=== PATIENT | male | born 1955 | race Caucasian/White ===

== ENCOUNTER 2018-04-10 05:46 | Day surgery (SDC) | payer BC ==
[2018-04-10] MEDS ORDERED: ONDANSETRON HCL IV 4 MG/2 ML VIAL IVP ONE (05:47)
[2018-04-10] MEDS ORDERED: LIDOCAINE 2% MDV (20MG/ML) 20ML VIAL IV ONE (05:47)
[2018-04-10] MEDS ORDERED: BUPIVACAINE LIPOSOME 266MG/20ML VIAL IV ONE (05:47)
[2018-04-10] MEDS ORDERED: BUPIVACAINE 0.25% W/EPI MPF 30ML VIAL IVP ONE (05:47)
[2018-04-10] MEDS ORDERED: TRANEXAMIC ACID 1,000 MG/10 ML ML IV ONE (05:47)
[2018-04-10] MEDS ORDERED: ROPIVACAINE HCL (NAROPIN) /PF 5MG/ML 20ML VIAL IV ONE (05:47)
[2018-04-10] MEDS ORDERED: MIDAZOLAM HCL 2MG/2ML VIAL IV ONE (05:47)
[2018-04-10] MEDS ORDERED: DEXAMETHASONE 4 MG/ML 1ML VIAL IVP ONE (05:47)
[2018-04-10] MEDS ORDERED: PROPOFOL 10 MG/ML VIAL IV ONE (05:47)
[2018-04-10] MEDS ORDERED: METOCLOPRAMIDE 10 MG TABLET PO ONE (06:00)
[2018-04-10] MEDS ORDERED: ACETAMINOPHEN 1,000 MG/100 ML BTL IV ONE (06:00)
[2018-04-10] MEDS ORDERED: CEFAZOLIN 2 Gram 2 GM/50 ML BAG IVPB ONE (06:00)
[2018-04-10] MEDS ORDERED: FAMOTIDINE 20MG TABLET PO ONE (06:00)
[2018-04-10] MEDS ORDERED: MECLIZINE 25 MG TABLET PO ONE (06:00)
[2018-04-10] MEDS ORDERED: ZOLPIDEM TARTRATE 5 MG TABLET PO PRN (09:45)
[2018-04-10] MEDS ORDERED: ONDANSETRON HCL IV 4 MG/2 ML VIAL IVP PRN (09:45)
[2018-04-10] MEDS ORDERED: DIPHENHYDRAMINE HCL 25 MG CAPSULE PO PRN (09:45)
[2018-04-10] MEDS ORDERED: AL HYDROX/MAG HYDROX 30ML UD PO PRN (09:45)
[2018-04-10] MEDS ORDERED: MAGNESIUM HYDROXIDE 30 ML UDC PO PRN (09:45)
[2018-04-10] MEDS ORDERED: TRAMADOL HCL 50 MG TABLET PO PRN ×2 (09:45)
[2018-04-10] MEDS ORDERED: METOCLOPRAMIDE HCL 10 MG/2 ML VIAL IVP PRN (09:45)
[2018-04-10] MEDS ORDERED: SENNOSIDES/DOCUSATE SODIUM UD CAPSULE PO PRN (09:45)
[2018-04-10] MEDS ORDERED: OXYCODONE HCL 5 MG TABLET PO PRN (09:48)
[2018-04-10] MEDS ORDERED: RINGERS SOLUTION,LACTATED 1,000 ML IV PRN (11:39)
[2018-04-10] MEDS: OXYCODONE HCL 5 MG TABLET PO PRN ×3 (11:46→22:00)
[2018-04-10] MEDS ORDERED: TRANEXAMIC ACID 1,000 MG in 0.9 % SODIUM CHLORIDE 100ML 100 ML IVPB ONE (13:00)
[2018-04-10] MEDS: HYDROMORPHONE HCL 2 MG/ML VIAL IV PRN ×2 (13:49→16:41)
[2018-04-10] MEDS: FERROUS SULFATE 325 MG TAB PO SCH (14:18)
[2018-04-10] MEDS: ACETAMINOPHEN 1,000 MG/100 ML BTL IV SCH ×3 (14:24→23:25)
[2018-04-10] MEDS: RINGERS SOLUTION,LACTATED 1,000 ML IV SCH (14:51)
[2018-04-10] MEDS: CEFAZOLIN 1 Gram 1 GM/50 ML BAG IVPB SCH ×3 (16:38→23:43)
--- NOTE | 2018-04-10 18:19 | Rehab Evaluation ---
Patient Information - Patient Information Diagnosis: OA L knee s/p L TKA Ordered Treatment: PT Evaluate and Treat Status: Initial Evaluation Surgery: Yes (L TKA) Date of Surgery: 04/10/18 History: Detail (Pt describes progressive degeneration of L knee over the past several years.) Past Medical/Surgical Hx: PAST MEDICAL/SURGICAL HISTORY Past Surgical History hernias gastric bypass anne marie left RTC PMH - Respiratory Hx Respiratory Disorders Yes Hx Sleep Apnea Yes Hx of CPAP No PMH - Cardiovascular Hx Cardiovascular Disorders No Exercise Tolerance Good PMH - Neuro Hx Neurological Disorders No PMH - GI Hx Gastrointestinal Disorders Yes Hx Gastroesophageal Reflux Yes: occassionally PMH - Hx Genitourinary Disorders No PMH - Endocrine Hx Endocrine Disorders No PMH - Musculoskeletal Hx Musculoskeletal Disorders Yes Hx Arthritis Yes: knees PMH - Psych Hx Psychiatric Problems No PMH - Hematology/Oncology Hx Hematology/Oncology Yes Disorders Hx Anemia Yes Premorbid Status: Detail (Pt was ambulating independently without assistive device prior to surgery. He was having difficulty with pain, stiffness, and weakness of the left knee.) Social History: Detail (Pt is retired from [employer]; he lives alone in a two story house with two steps to enter with no handrail. He will not need to use basement or upstairs immediately after surgery.) Precautions: [place], Fall - Time With Patient Total Time Spent With Patient (Min): 30 Treatment Procedures: Detail (PT Evaluation) Subjective Information - Subjective Information Per Patient (Pt sitting in bedside chair upon arrival; reports throbbing pain in L knee.) Objective Data - Pain Pain Present: Yes Pain Intensity: 7 (L knee) Pain Scale Used: Numeric (1 - 10) - Mental Status Patient Orientation: Oriented x3 - Visual Perception Appears within normal limits for therapeutic activities - ROM Not within normal limits (Within normal limits in R LE and L hip and ankle. Impaired in L knee due to bulky dressing and surgical procedure.) - Strength/Tone Not within normal limits (3-/5 L hip flexion, L knee flexion and extension; 4/5 L hip extension, abduction, adduction; 4+/5 L ankle dorsiflexion. All muscle groups of R LE are 4+/5.) - Coordination Appears within normal limits for therapeutic activities - Bed Mobility Needs Assist (Requires min assist for L LE into/out of bed.) - Transfers Independent (Independent sit/stand transfers w/front wheeled walker from bedside , from bedside chair.) - Balance Balance Sitting: Good Balance Standing: Good - Sensation Intact - Gait Detail (Ambulated from bedside chair to double doors past surgery and back to bedside chair, w/CGA and assist for IV pole, using front wheeled walker, WBAT L LE (about 188 feet total).) Therapy Assessment - Therapy Assessment Detail (Pt exhibits mild impairment of mobility consistent w/his post surgical condition. He is a good candidate for inpatient physical therapy.) Patient Education - Patient Education Teaching Topic: Disease Process, Equipment Use, Exercise/Activity Response: Return Demonstration, Reinforcement Needed, Verbalize Understanding Teaching Method: Discussion, Demonstration Teaching Recipient: Patient Barriers To Learning: None Problem List - Problem List Physical Therapy Problem List: Detail (1. Requires minimal assist w/bed mobility. 2. Impaired ROM of L knee. 3. Difficulty walking.) Goals - Goals Physical Therapy Goals: 1. Pt will be independent w/bed mobility. 2. Pt will safely and independently ascend/descend three steps with appropriate assistive device. 3. Pt will safely and independently ambulate over household distances/ surfaces with front-wheeled walker. 4. Pt will be independent in a basic home exercise program for range of motion and muscle activation. Prognosis - Prognosis Good Plan - Plan Physical Therapy Plan: Pt will be seen twice tomorrow to instruct in home exercise program, gait training on levels and stairs.
[2018-04-10] MEDS: ASPIRIN 325 MG TAB ENTERIC-COATED PO SCH (21:59)
[2018-04-11] MEDS: CEFAZOLIN 1 Gram 1 GM/50 ML BAG IVPB SCH ×3 (00:49→09:00)
[2018-04-11] MEDS: OXYCODONE HCL 5 MG TABLET PO PRN ×2 (02:50→07:21)
[2018-04-11 06:53] LABS: HEMATOCRIT 36.3 % (42.0-52.0); HEMOGLOBIN 11.5 gm/dl (14.0-18.0); MEAN CELL VOLUME 91.7 fl (81-97); MEAN CORPUSCULAR HGB CONC 31.7 g/dl (32-36); MEAN PLATELET VOLUME 10.6 fl (7.4-10.4); PLATELET COUNT 214 K/uL (130-400); RED BLOOD COUNT 3.96 M/uL (4.40-5.70); RED CELL DISTRIBUTION WIDTH 12.9 % (11.5-14.5); WHITE BLOOD COUNT W/O DIFF 7.4 K/uL (4.2-12.2)
[2018-04-11] MEDS: RINGERS SOLUTION,LACTATED 1,000 ML IV SCH (06:53)
--- NOTE | 2018-04-11 09:26 | Physical Therapy Tx Note ---
Physical Therapy Tx Note - Treatment Note Tolerated: Good Total Time Spent With Patient: 30 Physical Therapy Tx Note: Detail (Pt sitting up in chair upon arrival, finishing breakfast, c/o persistent pain in L knee. States he didn't sleep well because of pain. Sit/stand transfer independently to front wheeled walker ; ambulated to stairwell, descended/ascended three steps w/handrail and folded front wheeled walker w/VC's and SBA. Ambulated from stairwell to surgery doors and back to bedside chair w/SBA. Performed 10 reps each of gluteal isometrics, hip adduction w/pillow, hip abduction w/manual resistance, knee flexion w/ manual resistance, heel slides w/towel under heel. Declined [employer], requested coffee. Provided w/coffee, left up in chair w/call light in reach; nrsg notified.) Physical Therapy Problem List: Detail (1. Requires minimal assist w/bed mobility. 2. Impaired ROM of L knee. 3. Difficulty walking.) Physical Therapy Goals: 1. Pt will be independent w/bed mobility. 2. Pt will safely and independently ascend/descend three steps with appropriate assistive device. 3. Pt will safely and independently ambulate over household distances/ surfaces with front-wheeled walker. 4. Pt will be independent in a basic home exercise program for range of motion and muscle activation. Prognosis: Good Physical Therapy Plan: Pt will be seen this afternoon to review home exercise program and stairs.
--- NOTE | 2018-04-11 09:40 | Operative Note ---
DATE OF SURGERY: 04/10/2018 Surgeon: Prakash Clancy DO PREOPERATIVE DIAGNOSIS: Primary osteoarthritis of the left knee. POSTOPERATIVE DIAGNOSIS: Primary osteoarthritis of the left knee. OPERATION: Left total knee arthroplasty. DESCRIPTION OF PROCEDURE: This 62-year-old male was taken to the operating room and placed in the supine position on the operating room table and spinal anesthesia was induced by the department of anesthesia. The left lower extremity was then elevated. It was prepped with Hibiclens and draped in the usual sterile fashion. It was exsanguinated and the tourniquet inflated to 300 mmHg. All scrub personnel wore personal isolation suits. An anterior longitudinal midline incision was made followed by a medial parapatellar arthrotomy incision. An intracondylar drill hole was made for the intramedullary alignment aryan and the distal femoral cutting block was pinned in 6 degrees of valgus. A 9 mm cut was made and the sizing jig was affixed. A size 70 was seen to be the appropriate size, 72 actually was too large. Therefore, a size 70 and 4-in-1 cutting block was pinned in 3 degrees of external rotation. The appropriate cuts were made and the wafers of bone were removed. We then directed our attention to the proximal tibia, and an extramedullary alignment guide was used to cut the proximal tibia. The cutting block was pinned referencing a 10 mm cut off the lateral tibial plateau. After appropriate alignment had been assured, a 3-degree posterior slope cut was made and the wafer of bone was removed. Remnants of the menisci and osteophytes were removed from the posterior aspect of the femur. The tibia was sized to a size 83 and stem punch was subsequently used. The patella was measured, cut, and restored to anatomic height with a 37 x 8.6 mm trial. Subsequently the trial components were inserted and a size 11 mm bearing was seen to give us the most appropriate fit with excellent stability, full extension, full flexion. All trial components were then removed and the wound copiously irrigated with pulse lavage, lactated Ringer's solution. All bony surfaces were dried. All components were cemented into place. Exparel was injected into the posterior, medial, and lateral corners of the joint and following the insertion of all components, the remainder was injected into the periosteum and joint capsule of the proximal tibia and distal femur. After all bony surfaces were dried, all components were cemented and excess cement removed after the insertion of each component. The knee was again taken through range of motion once the cement had hardened. Excellent stability of all components was identified. The wound irrigated with lactated Ringer's solution, suctioned, and a drain was placed through a separate stab incision. The arthrotomy incision was closed with a #2 Vicryl. The subcutaneous tissue was closed with 0 Vicryl. The skin was stapled. Sterile dressings were applied with a Polar Care. The patient was taken to the recovery room in satisfactory condition. GROSS PATHOLOGY: This patient had severe full-thickness articular cartilage loss on both sides of the medial compartment and at the patellofemoral articulation. The lateral compartment demonstrated grade 2 changes on the tibia and femur. Final components inserted were a [employer] size 70 cruciate retaining femur, an 83 tibia, an 11 mm anterior stabilized D1 bearing, and an 8.6 x 37 mm patella was used. CC: ABAD JOHNSON MD, FACP MTDD
[2018-04-11] MEDS ORDERED: ACETAMINOPHEN 325 MG TAB PO PRN (09:45)
[2018-04-11] MEDS ORDERED: HYDROCODONE/APAP 5/325MG TABLET PO PRN (09:48)
[2018-04-11] MEDS ORDERED: OXYCODONE HCL/APAP 5MG/325MG TABLET PO PRN ×2 (09:48)
[2018-04-11] MEDS ORDERED: CELECOXIB 100 MG CAPSULE PO SCH (10:00)
[2018-04-11] MEDS: HYDROCODONE/APAP 5/325MG TABLET PO PRN ×2 (10:10→13:29)
[2018-04-11] MEDS: ASPIRIN 325 MG TAB ENTERIC-COATED PO SCH (10:10)
[2018-04-11] MEDS: FERROUS SULFATE 325 MG TAB PO SCH (10:10)
--- NOTE | 2018-04-11 14:09 | Rehab Evaluation ---
Patient Information - Patient Information Diagnosis: OA L knee s/p L TKA Ordered Treatment: OT Evaluate and Treat Status: Initial Evaluation Surgery: Yes (L TKA) Date of Surgery: 04/10/18 History: Detail (Pt describes progressive degeneration of L knee over the past several years.) Past Medical/Surgical Hx: PAST MEDICAL/SURGICAL HISTORY Past Surgical History hernias gastric bypass anne marie left RTC PMH - Respiratory Hx Respiratory Disorders Yes Hx Sleep Apnea Yes Hx of CPAP No PMH - Cardiovascular Hx Cardiovascular Disorders No Exercise Tolerance Good PMH - Neuro Hx Neurological Disorders No PMH - GI Hx Gastrointestinal Disorders Yes Hx Gastroesophageal Reflux Yes: occassionally PMH - Hx Genitourinary Disorders No PMH - Endocrine Hx Endocrine Disorders No PMH - Musculoskeletal Hx Musculoskeletal Disorders Yes Hx Arthritis Yes: knees PMH - Psych Hx Psychiatric Problems No PMH - Hematology/Oncology Hx Hematology/Oncology Yes Disorders Hx Anemia Yes Premorbid Status: Detail (Pt was ambulating independently without assistive device prior to surgery. He was having difficulty with pain, stiffness, and weakness of the left knee.) Social History: Detail (Pt is retired from [employer]; he lives alone in a two story house with basement and two steps to enter with no handrail. He will not need to use basement or upstairs immediately after surgery. He has a tub/ shower combination with a hand held shower, grab bar and shower seat. He has an elevated toilet seat, no grab bar. He is Ind with all ADLs and IADLs and his son helps with lawn work. He has a 2 wheeled walker.) Precautions: [place], Fall - Time With Patient Total Time Spent With Patient (Min): 40 Treatment Procedures: Detail (OT eval low complexity) Subjective Information - Subjective Information Per Patient Objective Data - Pain Pain Present: Yes (-04/11) - Mental Status Patient Orientation: Oriented x3 - Visual Perception Appears within normal limits for therapeutic activities - ROM Within normal limits ([place] UE AROM WNL) - Strength/Tone Within normal limits (Joshua UE strength WNL) - Coordination Appears within normal limits for therapeutic activities - Bed Mobility Independent (Ind with supine to sit) - Transfers Independent (Ind with sit to stand from EOB and chair.) - Balance Balance Sitting: Good Balance Standing: Good - Sensation Intact - Gait Detail (Pt ambulating in hallway with 2 wheeled walker Indly.) - ADL's/IADL's Detail (Pt educated and demonstrated learning of modified LE dressing including doffing briefs and slipper socks and donning boxer shorts, shorts, socks and tennis shoes. Pt educated re: shower and kitchen safety and he was able to verbalize learning.) Therapy Assessment - Therapy Assessment Detail (Ind with modified LE dressing techniques.) Problem List - Problem List Physical Therapy Problem List: Detail (1. Requires minimal assist w/bed mobility. 2. Impaired ROM of L knee. 3. Difficulty walking.) Occupational Therapy Problem List: Detail (No current OT problems identified.) Goals - Goals Physical Therapy Goals: 1. Pt will be independent w/bed mobility. 2. Pt will safely and independently ascend/descend three steps with appropriate assistive device. 3. Pt will safely and independently ambulate over household distances/ surfaces with front-wheeled walker. 4. Pt will be independent in a basic home exercise program for range of motion and muscle activation. Occupational Therapy Goals: No current OT goals identified. Prognosis - Prognosis Good Plan - Plan Physical Therapy Plan: Pt will be seen this afternoon to review home exercise program and stairs. Occupational Therapy Plan: No further IP OT recommended. Thank you for this referral.
--- NOTE | 2018-04-11 16:40 | Discharge Summary ---
DATE OF ADMISSION: 04/10/2018 DATE OF DISCHARGE: 04/11/2018 ADMITTING DIAGNOSIS: Osteoarthritis of the left knee. DISCHARGE DIAGNOSIS: Osteoarthritis of the left knee. OPERATIVE PROCEDURE: Elective left total knee arthroplasty. DESCRIPTION: This 62-year-old male was admitted to the hospital for elective total knee arthroplasty and tolerated the operative procedure well. He cleared physical therapy and was ready for discharge on the first postoperative day. He did not demonstrate any evidence of complication. No evidence of calf pain, shortness of breath, or chest pain. He will be discharged weightbearing as tolerated with his walker. He will have outpatient physical therapy previously arranged, and he will wear his PRUDENCE hose during the day and remove them at night. The patient was given a prescription for [place] 7.5/325 one every 4 hours as necessary for pain and he was given 60. He will take aspirin 80 mg b.i.d. He will follow up in the clinic in 2 weeks. Routine wound care instructions were given. He was instructed to call me should he have any problems prior to being seen. ZACKARY
== END 2018-04-11 13:25 | disposition home or self-care (01) ==
LOC: SUR 05:46 → MEDSURG 10:00 → SUR 04-11 13:25
PROVIDERS: ATTEND Orthopaedic Surgery
DX: M17.12 Unilateral primary osteoarthritis, left knee (principal); D64.9 Anemia, unspecified; G47.30 Sleep apnea, unspecified
CPT/HCPCS: 27447; 01402; 85025; J2405; J3490 ×2; J0690 ×3; J1170; C9290; J2795; G8987; G8988; G8989; 97110; 97530